=== PATIENT | male | born 1980 | race Two or more races ===

== ENCOUNTER → 2025-03-01 | Outpatient (CLI) | payer MEDICAID, SELFPAY ==
--- NOTE | 2025-03-01 14:23 | XR_ITS ---
EXAMINATION: Esophagram standard Fluoroscopy Upright PA chest single view Upright soft tissue lateral neck single view 24 Spot fluoroscopic films of the esophagus Date and time: March 01, 2025, 1430 hours INDICATIONS: Heartburn and difficulty swallowing 1 year. TECHNIQUE AND FINDINGS: Soft tissue lateral neck single view demonstrates advanced degenerative disc disease C5-C6 normal epiglottis Upright PA chest normal heart size lungs are clear Patient swallowed thin barium with 24 spot fluoroscopic films of the esophagus, fluoroscopy 10 seconds Primary peristaltic esophageal waves noted Moderate continuous gastroesophageal reflux Significant esophageal hernia Stricture at the gastrointestinal junction, narrowing 20% IMPRESSION: Moderate continuous gastroesophageal reflux 20% stricture at the gastroesophageal junction, likely reflux esophagitis
== END | disposition home or self-care (01) ==
PROVIDERS: PCP Physician Assistant; Referring Provider Physician Assistant; Visit Provider Physician Assistant
DX: K21.9 Gastro-esophageal reflux disease without esophagitis (principal); K22.2 Esophageal obstruction
CPT/HCPCS: 74220; A4649